=== PATIENT | female | born 1935 | race African-American/Black ===

== ENCOUNTER → 2016-09-03 | Outpatient (CLI) | payer MEDICARE ==
[2015-06-06 09:20] VITALS: BP 163/75
[~2016-09-03] MED LIST: AMLO10TA2 PO; ASPI-630 PO; ATOR40TA59 PO; CARV25TA2 PO; CHOL10002 PO; CLOP75TA57 PO; FENO160T PO; GLYB1TAB14 PO; HYDR12.58 PO; LOSA100T6 PO
--- NOTE | 2016-09-03 09:34 | CARD ---
APPROVED REPORT EXAM: Two-dimensional and M-mode echocardiogram with Doppler and color Doppler. Other Information Quality : Average Rhythm : NSR INDICATION Aortic Valve Disease Biosprosthetic aortic valve 2D DIMENSIONS RVDd3.1 (2.9-3.5cm)Left Atrium(2D)4.3 (1.6-4.0cm) IVSd1.1 (0.7-1.1cm)Aortic Root(2D)2.2 (2.0-3.7cm) LVDd4.0 (3.9-5.9cm)LVOT Diameter1.9 (1.8-2.4cm) PWd1.0 (0.7-1.1cm)LVDs2.9 (2.5-4.0cm) FS (%) 27.4 %SV37.7 ml LVEF(%)53.8 (>50%) Aortic Valve AoV Peak Richard.212.2cm/sAoV VTI51.4cm AO Peak GR.18.0mmHgLVOT Peak Richard.123.9cm/s LVOT VTI 30.05cmAO Mean GR.11mmHg Mitral Valve MV E Wajqhujq21.5cm/sMV DECEL IIFE603bn MV A Xvtsnumk360.5cm/sMV MAQ81si E/A Ratio0.9MV A Ztbhtkjj873zq MVA (PHT)2.91cm2 TDI E/Lateral E'15.7E/Medial E'13.9 Pulmonary Valve PV Peak Uhxrakzh484.5cm/sPV Peak Grad.5mmHg RVOT VTI17.5cm Tricuspid Valve TR P. Vffqxcec690cq/sRAP KFNMIEJE2hiUf TR Peak Gr.43zqGhAWCC39zpJq Pulmonary Vein S1 Wqrqmqwe08.4cm/sD2 Sqkvkpbl47.5cm/s LEFT VENTRICLE The left ventricle is normal size. There is borderline concentric left ventricular hypertrophy. Left ventricle systolic function is normal. The Ejection Fraction is 55-60%. There is normal LV segmental wall motion. The left ventricular diastolic function and filling is normal for age. There is no ventr icular septal defect visualized. RIGHT VENTRICLE The right ventricle is normal size. The right ventricular systolic function is normal. ATRIA The left atrium is borderline dilated. The right atrium size is normal. The interatrial septum is int act with no evidence for an atrial septal defect or patent foramen ovale as noted on 2-D or Doppler i maging. AORTIC VALVE Doppler and Color Flow revealed trace aortic regurgitation. Maximum pressure gradient of 18 mmHg and mean pressure gradient of 11 mmHg across the prosthetic aortic valve. There is a bioprosthetic aortic valve prosthesis. Prosthetic aortic valve with normal function. MITRAL VALVE The mitral valve leaflets are thickened. The mitral valve is normal in structure and function. There is no mitral valve stenosis. Doppler and Color Flow revealed mild mitral regurgitation. TRICUSPID VALVE The tricuspid valve is normal in structure and function. Doppler and Color Flow revealed mild tricusp id regurgitation. The PA pressure was estimated at 25 mmHg. There is no tricuspid valve stenosis. PULMONIC VALVE The pulmonic valve is not well visualized. Doppler and Color Flow revealed no pulmonic valvular regur gitation. There is no pulmonic valvular stenosis. GREAT VESSELS The aortic root is normal in size. Normal pulmonary venous flow (Doppler). The IVC is normal in size and collapses >50% with inspiration. PERICARDIAL EFFUSION There is no evidence of significant pericardial effusion. Critical Notification Critical Value: No <Conclusion> The left ventricle is normal size. Left ventricle systolic function is normal. The Ejection Fraction is 55-60%. There is borderline concentric left ventricular hypertrophy. Bioprosthetic aortic valve with normal function. Maximum pressure gradient of 18 mmHg and mean pressure gradient of 11 mmHg across the prosthetic aort ic valve. Doppler and Color Flow revealed trace aortic regurgitation. Doppler and Color Flow revealed mild mitral regurgitation. Doppler and Color Flow revealed mild tricuspid regurgitation. The PA pressure was estimated at 25 mmHg.
== END | disposition home or self-care (01) ==
LOC: ECHO 08:39
PROVIDERS: ATTEND Internal Medicine Cardiovascular Disease
DX: I08.3 Combined rheumatic disorders of mitral, aortic and tricuspid valves (principal)
CPT/HCPCS: 93306

== ENCOUNTER → 2017-02-11 | Outpatient (CLI) | payer MEDICARE ==
[2015-06-06 09:20] VITALS: BP 163/75
--- NOTE | 2017-02-11 15:36 | KCIC ---
CERVICAL SPINE 2-3V, THORACIC SPINE 3V Indication: Neck pain and stiffness radiating down the right arm. . Upper back pain for 2 weeks. Comparison: No comparison is available. FINDINGS: Cervical spine C1-C6 are visualized on lateral view, with obscured visualization of C7. Degenerative spondylosis noted, most advanced at C5-C6, with loss of disc height and spurring. No evidence of an acute fracture or subluxation. No definite prevertebral soft tissue swelling. There are surgical clips in the neck. Thoracic spine Mild right convexity thoracic scoliosis. Suboptimal visualization of the vertebral bodies on the AP or lateral view. There is degenerative spondylosis. No obvious paraspinal hematoma. Stent is identified at the anterior mediastinum. Surgical sutures are seen. IMPRESSION: 1. Degenerative changes of the cervical and thoracic spine. 2. No definite acute fracture or subluxation, but visualization of the thoracic spine is suboptimal. If there is clinical concern for an acute thoracic spine fracture, consider MRI. Electronically signed by: Bartolo Campbell MD (02/11/2017 3:32 PM) [facility]
== END | disposition home or self-care (01) ==
LOC: KCIC 14:06
PROVIDERS: ATTEND Family Medicine
DX: S22.009A Unspecified fracture of unspecified thoracic vertebra, initial encounter for closed fracture (principal); M47.894 Other spondylosis, thoracic region; M47.892 Other spondylosis, cervical region; X58.XXXA Exposure to other specified factors, initial encounter; Y93.89 Activity, other specified; Y92.89 Other specified places as the place of occurrence of the external cause; Y99.8 Other external cause status
CPT/HCPCS: 72040; 72072

== ENCOUNTER → 2017-03-11 | Outpatient (CLI) | payer MEDICARE | END | disposition home or self-care (01) | LOC: US 06:35 | DX: I65.23 Occlusion and stenosis of bilateral carotid arteries (principal); I70.203 Unspecified atherosclerosis of native arteries of extremities, bilateral legs | CPT/HCPCS: 93880; 93925 ==

== ENCOUNTER → 2017-03-27 | Outpatient (CLI) | payer MEDICARE ==
[~2017-03-27] MED LIST changes: -AMLO10TA2 PO; -ASPI-630 PO; -ATOR40TA59 PO; -CARV25TA2 PO; -CHOL10002 PO; -CLOP75TA57 PO; +CONTRAST GIVEN MC; -FENO160T PO; -GLYB1TAB14 PO; +HEPARIN for ARTERIAL LINE 0 ML; -HYDR12.58 PO; +IODIXANOL 320 MG/ML 100 ML VIAL.; -LOSA100T6 PO
[2017-03-27] MEDS: IOHEXOL 300 MG/ML 100ML VIAL. IV (08:30)
[2017-03-27] MEDS: REGADENOSON 0.4 MG/5 ML DISP.SYRIN. IV (08:45)
== END | disposition home or self-care (01) ==
LOC: NM 07:50
DX: I65.21 Occlusion and stenosis of right carotid artery (principal); I25.10 Atherosclerotic heart disease of native coronary artery without angina pectoris; I10 Essential (primary) hypertension; E11.9 Type 2 diabetes mellitus without complications
CPT/HCPCS: 70498; 78452; 93017; 96374; 96375; 96376; A9500; J2785; Q9967

== ENCOUNTER 2017-04-07 06:18 | Observation (INO) | payer MEDICARE ==
[2017-04-07] MEDS ORDERED: LIDOCAINE 2% 20 ML VIAL. ×2 (07:22)
[2017-04-07] MEDS ORDERED: IODIXANOL 320 MG/ML 100 ML VIAL. ×4 (07:22→09:19)
[2017-04-07 07:42] LABS: ANION GAP 7 (6-14); BLOOD UREA NITROGEN 26 mg/dL (7-20); CALCIUM 9.3 mg/dL (8.5-10.1); CARBON DIOXIDE 28 mmol/L (21-32); CHLORIDE 104 mmol/L (98-107); CREATININE 0.9 mg/dL (0.6-1.0); GFR 73.1; GLUCOSE 140 mg/dL (70-99); POTASSIUM 3.7 mmol/L (3.5-5.1); SODIUM 139 mmol/L (136-145)
[2017-04-07 07:45] LABS: HEMATOCRIT 34.9 % (36.0-47.0); HEMOGLOBIN 11.3 g/dL (12.0-15.5); MEAN CORPUSCULAR HEMOGLOBIN 28 pg (25-35); MEAN CORPUSCULAR HGB CONC 33 g/dL (31-37); MEAN CORPUSCULAR VOLUME 86 fL (79-100); PLATELET COUNT 256 x10^3/uL (140-400); RED BLOOD COUNT 4.07 x10^6/uL (3.50-5.40); RED CELL DISTRIBUTION WIDTH 15.5 % (11.5-14.5)
[2017-04-07] MEDS ORDERED: fentaNYL PF VIAL 100 MCG/2 ML VIAL ×4 (08:01→09:26)
[2017-04-07] MEDS ORDERED: MIDAZOLAM HCL/PF 2 MG/2 ML VIAL. ×4 (08:01→09:26)
[2017-04-07 08:11] LABS: INR 1.1 (0.8-1.1); PROTHROMBIN TIME PATIENT 13.8 SEC (11.7-14.0)
[2017-04-07] MEDS ORDERED: HEPARIN for IV BOLUS 10,000 UNIT/10 ML VIAL. ×2 (09:17)
[2017-04-07] MEDS ORDERED: NITROGLYCERIN 4 MG/20 ML SYRINGE for CATH LAB. ×4 (09:17→09:30)
[2017-04-07] MEDS ORDERED: dilTIAZem IV PUSH 25 MG/5 ML VIAL ×2 (09:17)
[2017-04-07] MEDS ORDERED: NITROGLYCERIN 200 MCG/2 ML SYRINGE FOR CATH/VASC LAB. ×4 (09:39→10:15)
[2017-04-07] MEDS ORDERED: VERAPAMIL 5 MG/2 ML VIAL. ×2 (10:15)
[2017-04-07] MEDS ORDERED: ASPIRIN 325 MG TABLET ×2 (10:43)
[2017-04-07] MEDS ORDERED: CLOPIDOGREL BISULFATE 75 MG TABLET ×2 (10:43)
[2017-04-07] MEDS: ASPIRIN 325 MG TABLET PO ×2 (10:53)
[2017-04-07] MEDS: CLOPIDOGREL BISULFATE 75 MG TABLET PO ×2 (10:54)
[2017-04-07] MEDS: MIDAZOLAM HCL/PF 2 MG/2 ML VIAL. IV ×2 (10:55)
[2017-04-07] MEDS: VERAPAMIL 5 MG/2 ML VIAL. IART ×2 (10:56)
[2017-04-07] MEDS: fentaNYL PF VIAL 100 MCG/2 ML VIAL IV ×2 (10:57)
[2017-04-07] MEDS: IODIXANOL 320 MG/ML 100 ML VIAL. IART ×2 (10:57)
[2017-04-07] MEDS: LIDOCAINE 2% 20 ML VIAL. IJ ×2 (10:58)
[2017-04-07] MEDS: NITROGLYCERIN 200 MCG/2 ML SYRINGE FOR CATH/VASC LAB. IART ×2 (10:59)
[2017-04-07] MEDS ORDERED: ACETAMINOPHEN 325 MG TABLET. PO ×2 (11:00)
[2017-04-07] MEDS: IV 1/2 NORMAL SALINE 1,000 ML IV ×4 (11:00→21:00)
[2017-04-07] MEDS: HEPARIN for IV BOLUS 10,000 UNIT/10 ML VIAL. IV ×2 (11:01)
[2017-04-07] MEDS: LABETALOL 20 MG/4 ML DISP.SYRIN. IVP ×4 (13:03→20:28)
[2017-04-07] MEDS: amLODIPine BESYLATE 10 MG TABLET PO ×2 (14:26)
[2017-04-07] MEDS: CARVEDILOL 12.5 MG TABLET. PO ×2 (17:57)
[2017-04-07] MEDS: FERROUS SULFATE 325 MG TABLET. PO ×2 (17:57)
[2017-04-07] MEDS ORDERED: CONTRAST GIVEN MC ×2 (18:00)
[2017-04-07] MEDS: glyBURIDE 5 MG TABLET PO ×2 (18:09)
[2017-04-07] MEDS: ATORVASTATIN CALCIUM 40 MG TABLET. PO ×2 (20:28)
[2017-04-07] MEDS ORDERED: METFORMIN HCL PO ×2 (21:00)
[2017-04-07] MEDS ORDERED: GLYBURIDE PO ×2 (21:00)
[2017-04-08] MEDS: LABETALOL 20 MG/4 ML DISP.SYRIN. IVP ×2 (04:11)
[2017-04-08 05:22] LABS: ANION GAP 8 (6-14); BLOOD UREA NITROGEN 20 mg/dL (7-20); CALCIUM 8.6 mg/dL (8.5-10.1); CARBON DIOXIDE 26 mmol/L (21-32); CHLORIDE 106 mmol/L (98-107); CREATININE 0.8 mg/dL (0.6-1.0); GFR 83.7; GLUCOSE 89 mg/dL (70-99); POTASSIUM 3.7 mmol/L (3.5-5.1); SODIUM 140 mmol/L (136-145)
[2017-04-08] MEDS: IV 1/2 NORMAL SALINE 1,000 ML IV ×2 (07:00)
[2017-04-08] MEDS: CLOPIDOGREL BISULFATE 75 MG TABLET PO ×2 (08:42)
[2017-04-08] MEDS: CARVEDILOL 12.5 MG TABLET. PO ×2 (08:43)
[2017-04-08] MEDS: CYANOCOBALAMIN (VITAMIN B-12) 1,000 MCG TABLET. PO ×2 (08:43)
[2017-04-08] MEDS: FOLIC ACID 1 MG TABLET. PO ×2 (08:43)
[2017-04-08] MEDS: LOSARTAN POTASSIUM 50 MG TABLET. PO ×2 (08:43)
[2017-04-08] MEDS: CHOLECALCIFEROL (VITAMIN D3) 1,000 UNIT TABLET PO ×2 (08:44)
[2017-04-08] MEDS: ASPIRIN CHEWABLE 81 MG TABLET. PO ×2 (08:44)
[2017-04-08] MEDS: amLODIPine BESYLATE 5 MG TABLET PO ×4 (08:46→11:08)
[2017-04-08] MEDS: hydroCHLOROthiazide 12.5 MG CAPSULE PO ×2 (08:46)
[2017-04-08] MEDS: FERROUS SULFATE 325 MG TABLET. PO ×2 (08:46)
[2017-04-08] MEDS: FENOFIBRATE,MICRONIZED 134 MG CAPSULE PO ×2 (08:54)
[2017-04-08] MEDS: glyBURIDE 5 MG TABLET PO ×2 (08:54)
[2017-04-09] MEDS ORDERED: metFORMIN 500 MG TABLET PO ×2 (08:00)
== END 2017-04-08 11:50 | disposition home or self-care (01) ==
LOC: CCL 06:18 → 2 NORTH 10:30
DX: I73.9 Peripheral vascular disease, unspecified (principal); I25.10 Atherosclerotic heart disease of native coronary artery without angina pectoris; R94.39 Abnormal result of other cardiovascular function study; Z95.1 Presence of aortocoronary bypass graft; I65.29 Occlusion and stenosis of unspecified carotid artery; Q25.3 Supravalvular aortic stenosis; I50.32 Chronic diastolic (congestive) heart failure; E78.5 Hyperlipidemia, unspecified; E11.9 Type 2 diabetes mellitus without complications; I11.0 Hypertensive heart disease with heart failure
CPT/HCPCS: 36415; 37227; 75630; 80048; 85027; 85610; 93459; 96365; 96375; 96376; 99152; 99153; C1724; C1725; C1769; C1771; C1877; C1892; G0269; G0378; G0379; J1644; J2250; J3010; J3490; J7030

== ENCOUNTER 2017-05-26 06:10 | Outpatient (CLI) | payer MEDICARE ==
[2017-05-26] MEDS ORDERED: LIDOCAINE 2% 20 ML VIAL. (07:11)
[2017-05-26] MEDS ORDERED: IODIXANOL 320 MG/ML 100 ML VIAL. (07:11)
[2017-05-26 07:12] LABS: HEMATOCRIT 35.9 % (36.0-47.0); HEMOGLOBIN 11.5 g/dL (12.0-15.5); MEAN CORPUSCULAR HEMOGLOBIN 28 pg (25-35); MEAN CORPUSCULAR HGB CONC 32 g/dL (31-37); MEAN CORPUSCULAR VOLUME 86 fL (79-100); PLATELET COUNT 245 x10^3/uL (140-400); RED BLOOD COUNT 4.16 x10^6/uL (3.50-5.40); WHITE BLOOD COUNT 4.8 x10^3/uL (4.0-11.0)
[2017-05-26 07:14] LABS: ANION GAP 10 (6-14); BLOOD UREA NITROGEN 27 mg/dL (7-20); CALCIUM 9.5 mg/dL (8.5-10.1); CARBON DIOXIDE 27 mmol/L (21-32); CHLORIDE 108 mmol/L (98-107); GFR 64.7; GLUCOSE 74 mg/dL (70-99); POTASSIUM 3.7 mmol/L (3.5-5.1); SODIUM 145 mmol/L (136-145)
[2017-05-26 07:32] LABS: INR 1.2 (0.8-1.1); PROTHROMBIN TIME PATIENT 14.4 SEC (11.7-14.0)
[2017-05-26] MEDS: LIDOCAINE 2% 20 ML VIAL. IJ (07:45)
[2017-05-26] MEDS: IODIXANOL 320 MG/ML 100 ML VIAL. IART (07:45)
[2017-05-26] MEDS ORDERED: MIDAZOLAM HCL/PF 2 MG/2 ML VIAL. (08:08)
[2017-05-26] MEDS ORDERED: fentaNYL PF VIAL 100 MCG/2 ML VIAL (08:08)
[2017-05-26] MEDS ORDERED: HEPARIN for IV BOLUS 10,000 UNIT/10 ML VIAL. ×2 (08:24→08:56)
[2017-05-26] MEDS: dilTIAZem INJ 10 MG, NITROGLYCERIN 4MG SYRINGE 4 MG, HEPARIN SODIUM 10,000 UNIT, VIPERS... INT CAT (09:15)
[2017-05-26] MEDS: fentaNYL PF VIAL 100 MCG/2 ML VIAL IV (09:47)
[2017-05-26] MEDS: MIDAZOLAM HCL/PF 2 MG/2 ML VIAL. IV (09:47)
[2017-05-26] MEDS: HEPARIN for IV BOLUS 10,000 UNIT/10 ML VIAL. IV (09:50)
[2017-05-26] MEDS: NITROGLYCERIN 200 MCG/2 ML SYRINGE FOR CATH/VASC LAB. IART (10:00)
[2017-05-26] MEDS ORDERED: IV 1/2 NORMAL SALINE 1,000 ML IV (10:05)
[2017-05-26] MEDS ORDERED: fentaNYL PF VIAL 100 MCG/2 ML VIAL IV (10:15)
[2017-05-26] MEDS ORDERED: NITROGLYCERIN SUBLINGUAL 0.4 MG BOTTLE OF 25. SL (10:15)
[2017-05-26] MEDS ORDERED: ACETAMINOPHEN 325 MG TABLET. PO (10:15)
[2017-05-26] MEDS: LABETALOL 20 MG/4 ML DISP.SYRIN. IVP (10:58)
== END 2017-05-26 14:11 | disposition home or self-care (01) ==
LOC: CCL 06:10
DX: I70.212 Atherosclerosis of native arteries of extremities with intermittent claudication, left leg (principal); I10 Essential (primary) hypertension; I25.10 Atherosclerotic heart disease of native coronary artery without angina pectoris; E11.9 Type 2 diabetes mellitus without complications; E78.5 Hyperlipidemia, unspecified; M19.90 Unspecified osteoarthritis, unspecified site; D64.9 Anemia, unspecified; Z98.49 Cataract extraction status, unspecified eye; Z98.890 Other specified postprocedural states; Z79.899 Other long term (current) drug therapy
CPT/HCPCS: 36415; 37225; 37228; 80048; 85027; 85610; 99152; 99153; C1724; C1769; C1885; C1892; J1644; J2250; J3010; J3490; J7030

== ENCOUNTER 2017-09-08 05:43 | Inpatient (IN) | payer MEDICARE ==
[2017-09-08] MEDS ORDERED: PROTAMINE 50 MG/5 ML VIAL. IV (05:53)
[2017-09-08] MEDS: IV RINGERS,LACTATED 1000ML 1,000 ML IV (06:43)
[2017-09-08] MEDS ORDERED: MIDAZOLAM HCL/PF 2 MG/2 ML VIAL. ×2 (06:58→06:59)
[2017-09-08 06:59] LABS: INR 1.2 (0.8-1.1); PARTIAL THROMBOPLASTIN TIME 33 SEC (24-38); PROTHROMBIN TIME PATIENT 14.6 SEC (11.7-14.0)
[2017-09-08] MEDS ORDERED: BUPIVACAINE MPF 0.25% 30 ML VIAL. (06:59)
[2017-09-08] MEDS ORDERED: ONDANSETRON PF 4 MG/2 ML VIAL. IV ×2 (07:00→09:30)
[2017-09-08] MEDS ORDERED: MORPHINE SULFATE 2 MG/ML DISP.SYRIN. IV ×2 (07:00→09:30)
[2017-09-08] MEDS ORDERED: PROCHLORPERAZINE 10 MG/2 ML VIAL. IV ×2 (07:00→09:30)
[2017-09-08] MEDS ORDERED: LIDOCAINE 1% PF 2 ML VIAL. ID (07:00)
[2017-09-08] MEDS ORDERED: fentaNYL PF VIAL 100 MCG/2 ML VIAL IV (07:00)
[2017-09-08 07:09] LABS: ADD MAN DIFF? NO
[2017-09-08 07:12] LABS: BASO % 0 % (0-3); EOS # 0.2 x10^3/uL (0.0-0.7); EOS % 3 % (0-3); HEMATOCRIT 35.1 % (36.0-47.0); HEMOGLOBIN 11.7 g/dL (12.0-15.5); LYMPH % 37 % (24-48); MEAN CORPUSCULAR HEMOGLOBIN 29 pg (25-35); MEAN CORPUSCULAR HGB CONC 33 g/dL (31-37); MEAN CORPUSCULAR VOLUME 86 fL (79-100); MONO # 0.6 x10^3/uL (0.0-1.1); MONO % 11 % (0-9); NEUT # 2.6 x10^3uL (1.8-7.7); NEUT % 48 % (31-73); PLATELET COUNT 240 x10^3/uL (140-400); RED BLOOD COUNT 4.08 x10^6/uL (3.50-5.40); RED CELL DISTRIBUTION WIDTH 16.2 % (11.5-14.5); WHITE BLOOD COUNT 5.4 x10^3/uL (4.0-11.0)
[2017-09-08 07:24] LABS: ANION GAP 7 (6-14); BLOOD UREA NITROGEN 39 mg/dL (7-20); CALCIUM 9.6 mg/dL (8.5-10.1); CARBON DIOXIDE 27 mmol/L (21-32); CHLORIDE 109 mmol/L (98-107); CREATININE 1.1 mg/dL (0.6-1.0); GLUCOSE 102 mg/dL (70-99); POTASSIUM 3.7 mmol/L (3.5-5.1); SODIUM 143 mmol/L (136-145)
[2017-09-08] MEDS ORDERED: hydrALAZINE 20 MG/ML VIAL. (07:31)
[2017-09-08] MEDS ORDERED: HEPARIN for IV BOLUS 10,000 UNIT/10 ML VIAL. (07:32)
[2017-09-08] MEDS: HEPARIN SODIUM 5,000 UNIT in IV RINGERS,LACTATED 500ML 500 ML IRR (08:09)
[2017-09-08] MEDS: LIDOCAINE 1% PF 30 ML VIAL. (08:10)
[2017-09-08] MEDS: SURGICEL FIBRILLAR 1X2 EACH. (08:59)
[2017-09-08] MEDS ORDERED: fentaNYL PF VIAL 100 MCG/2 ML VIAL (09:03)
[2017-09-08] MEDS ORDERED: 0.9 % SODIUM CHLORIDE 10 ML DISP.SYRIN. IV (09:30)
[2017-09-08] MEDS ORDERED: ACETAMINOPHEN 325 MG TABLET. PO (09:30)
[2017-09-08] MEDS ORDERED: HYDROcodone/APAP 5/325MG 1 TAB TABLET PO (09:30)
[2017-09-08] MEDS: fentaNYL PF VIAL 100 MCG/2 ML VIAL IV (09:41)
[2017-09-08 10:13] LABS: POC GLUCOSE 187 mg/dL (70-99)
[2017-09-08] MEDS: CHOLECALCIFEROL (VITAMIN D3) 1,000 UNIT TABLET PO (13:00)
[2017-09-08] MEDS: amLODIPine BESYLATE 5 MG TABLET PO (13:00)
[2017-09-08] MEDS: CLOPIDOGREL BISULFATE 75 MG TABLET PO (13:00)
[2017-09-08] MEDS: ASPIRIN ENTERIC COATED 325 MG TABLET.DR. PO (13:00)
[2017-09-08] MEDS: GLIMEPIRIDE 2 MG TABLET. PO (13:00)
[2017-09-08] MEDS: hydroCHLOROthiazide 12.5 MG CAPSULE PO (13:00)
[2017-09-08] MEDS: CYANOCOBALAMIN (VITAMIN B-12) 1,000 MCG TABLET. PO (13:00)
[2017-09-08] MEDS: FOLIC ACID 1 MG TABLET. PO (13:00)
[2017-09-08] MEDS: LOSARTAN POTASSIUM 50 MG TABLET. PO (13:00)
[2017-09-08] MEDS: HYDROcodone/APAP 5/325MG 1 TAB TABLET PO (13:06)
[2017-09-08] MEDS: IV NORMAL SALINE 1000ML BAG 1,000 ML IV ×2 (13:08→23:55)
[2017-09-08] MEDS: LABETALOL 20 MG/4 ML DISP.SYRIN. IVP (13:41)
[2017-09-08] MEDS: CARVEDILOL 12.5 MG TABLET. PO (17:52)
[2017-09-08] MEDS: ATORVASTATIN CALCIUM 40 MG TABLET. PO (21:41)
[2017-09-08] MEDS: FENOFIBRATE,MICRONIZED 134 MG CAPSULE PO (21:41)
[2017-09-09 05:30] LABS: ADD MAN DIFF? NO
[2017-09-09 05:38] LABS: BASO % 1 % (0-3); EOS # 0.1 x10^3/uL (0.0-0.7); EOS % 2 % (0-3); HEMATOCRIT 30.4 % (36.0-47.0); LYMPH # 1.8 x10^3/uL (1.0-4.8); LYMPH % 31 % (24-48); MEAN CORPUSCULAR HEMOGLOBIN 29 pg (25-35); MEAN CORPUSCULAR HGB CONC 33 g/dL (31-37); MEAN CORPUSCULAR VOLUME 87 fL (79-100); MONO # 0.5 x10^3/uL (0.0-1.1); MONO % 9 % (0-9); NEUT # 3.2 x10^3uL (1.8-7.7); NEUT % 57 % (31-73); PLATELET COUNT 202 x10^3/uL (140-400); RED BLOOD COUNT 3.51 x10^6/uL (3.50-5.40); RED CELL DISTRIBUTION WIDTH 16.2 % (11.5-14.5); WHITE BLOOD COUNT 5.7 x10^3/uL (4.0-11.0)
[2017-09-09 06:06] LABS: ANION GAP 6 (6-14); BLOOD UREA NITROGEN 23 mg/dL (7-20); CALCIUM 8.5 mg/dL (8.5-10.1); CARBON DIOXIDE 26 mmol/L (21-32); CHLORIDE 110 mmol/L (98-107); GFR 64.7; GLUCOSE 109 mg/dL (70-99); POTASSIUM 3.7 mmol/L (3.5-5.1); SODIUM 142 mmol/L (136-145)
[2017-09-09] MEDS ORDERED: ASPIRIN CHEWABLE 81 MG TABLET. PO (08:00)
[2017-09-09] MEDS: CYANOCOBALAMIN (VITAMIN B-12) 1,000 MCG TABLET. PO (08:02)
[2017-09-09] MEDS: CHOLECALCIFEROL (VITAMIN D3) 1,000 UNIT TABLET PO (08:02)
[2017-09-09] MEDS: GLIMEPIRIDE 2 MG TABLET. PO (08:02)
[2017-09-09] MEDS: HYDROcodone/APAP 5/325MG 1 TAB TABLET PO (08:02)
[2017-09-09] MEDS: FOLIC ACID 1 MG TABLET. PO (08:02)
[2017-09-09] MEDS: CLOPIDOGREL BISULFATE 75 MG TABLET PO (08:02)
[2017-09-09] MEDS: ASPIRIN ENTERIC COATED 325 MG TABLET.DR. PO (08:02)
[2017-09-09] MEDS: hydroCHLOROthiazide 12.5 MG CAPSULE PO (08:02)
[2017-09-09] MEDS: LOSARTAN POTASSIUM 50 MG TABLET. PO (08:03)
[2017-09-09] MEDS: amLODIPine BESYLATE 5 MG TABLET PO ×2 (08:03→11:18)
[2017-09-09] MEDS: IV NORMAL SALINE 1000ML BAG 1,000 ML IV (11:00)
[2017-09-09] MEDS: CARVEDILOL 12.5 MG TABLET. PO (11:17)
== END 2017-09-09 14:48 | disposition home or self-care (01) | DRG 39 ==
LOC: OPSVCIP 05:43 → 2 NORTH 10:15
PROC: 03CL0ZZ Extirpation of Matter from Left Internal Carotid Artery, Open Approach (ICD-10-PCS; principal; 2017-09-08 07:22)
DX: I65.22 Occlusion and stenosis of left carotid artery (principal); I25.10 Atherosclerotic heart disease of native coronary artery without angina pectoris; E11.51 Type 2 diabetes mellitus with diabetic peripheral angiopathy without gangrene; E66.9 Obesity, unspecified; I10 Essential (primary) hypertension; E78.5 Hyperlipidemia, unspecified; Z95.2 Presence of prosthetic heart valve; Z82.49 Family history of ischemic heart disease and other diseases of the circulatory system; Z82.61 Family history of arthritis; Z88.8 Allergy status to other drugs, medicaments and biological substances; Z95.1 Presence of aortocoronary bypass graft
CPT/HCPCS: 36415; 80048; 82962; 85025; 85610; 85730; 93005; J0360; J0690; J1644; J2250; J3010; J3490; J7030; J7040; J7120

== ENCOUNTER → 2018-01-11 | Outpatient (CLI) | payer MEDICARE ==
[2017-09-09 11:18] VITALS: BP 190/65
[~2018-01-11] MED LIST changes: +AMLO10TA6 PO; +ASPI-630 PO; +ASPI325T11 PO; +ATOR40TA59 PO; +CARV25TA PO; +CARV25TA2 PO; +CHOL10002 PO; +CLOP75TA57 PO; -CONTRAST GIVEN MC; +CYAN10005 PO; +FENO160T PO; +FERR325T14 PO; +FOLI1TAB16 PO; +GLIM2TAB2 PO; +GLYB-100 PO; +GLYB1TAB2 PO; -HEPARIN for ARTERIAL LINE 0 ML; +HYDR12.58 PO; -IODIXANOL 320 MG/ML 100 ML VIAL.; +LOSA100T7 PO
--- NOTE | 2018-01-11 13:24 | RAD ---
MR#: [id number] Date of Study: 01/11/2018 Ordering Physician: RADHA DHALIWAL, Referring Physician: RADHA DHALIWAL, Tech: STARR Antunez, RDMS, RTR APPROVED REPORT Patient Location: OUT-PATIENT Indications Rest Pain: Edema PAD Risk Factors History of Lower Extremity PAD: Bilaterally Hypertension Diabetes Surgery/Intervention Stent : VELOCITY AND DOPPLER WAVEFORM ANALYSIS RIGHT cm/secWaveformSeverity LEFT cm/secWaveform Severity pCFA 81.5MonophasicpCFA 145.1Biphasic Prof Fem Art. 63.1Prof Fem Art. 214.8 Fem Art Prox. 64.7MonophasicFem Art Prox. 136.0Biphasic Fem Art Mid. 45.9MonophasicFem Art Mid. 157.8Biphasic Fem Art Dist. 59.9MonophasicFem Art Dist. 140.9Biphasic Pop Art(Fossa) 42.1MonophasicPop Art([place]) 156.7Biphasic DEPLOYMENT TECHNICIAN Dist. 32.7MonophasicPTA Dist. 100.8Biphasic Per Art Dist.51.8MonophasicPer Art Dist.70.1Biphasic PB Dist. 16.6MonophasicATA Dist. 84.2Biphasic DPA 8MonophasicDPA 15Biphasic Findings Grayscale images of the right lower extremity arterial vessels reveals diffuse atherosclerotic plaque of moderate degree. Spectral waveforms are monophasic suggestive either of a more proximal stenosis and/or loss of arterial elasticity due to diffuse calcific disease. There is severe diffuse disease i nvolving the anterior tibial artery with severely diminished velocities. The peroneal and posterior t ibial arteries appear to be patent but again demonstrate diminished monophasic waveforms. The left lower extremity arterial vessels also demonstrate mild to moderate diffuse atherosclerotic d isease. Velocities on the left are within normal limits without any focal high-grade stenosis and thr ee-vessel runoff below the knee. The dorsalis pedis artery on the left side appears to be severely di ffusely diseased at greater than 50% stenosis. Critical Notification Critical Value: No <Conclusion> 1. Cannot rule out inflow disease on the right side but notable for diffuse monophasic waveforms and moderate diffuse atherosclerotic disease. 2. No significant left lower extremity arterial disease Signed by : Florentin Zimmer, Electronically Approved : 01/11/2018 13:24:11
== END | disposition home or self-care (01) ==
LOC: US 08:11
PROVIDERS: ATTEND Internal Medicine Cardiovascular Disease
DX: I70.293 Other atherosclerosis of native arteries of extremities, bilateral legs (principal); I10 Essential (primary) hypertension; E11.9 Type 2 diabetes mellitus without complications
CPT/HCPCS: 93925

== ENCOUNTER → 2018-08-04 | Outpatient (CLI) | payer MEDICARE ==
[2017-09-09 11:18] VITALS: BP 190/65
[~2018-08-04] MED LIST changes: -AMLO10TA6 PO; +AMLO10TA8 PO; +LOSA100T14 PO; -LOSA100T7 PO
--- NOTE | 2018-08-04 09:17 | RAD ---
MR#: [id number] Date of Study: 08/04/2018 Ordering Physician: RADHA DHALIWAL, Referring Physician: RADHA DHALIWAL, Tech: Isaias Cruz MBA, RDMS, RVT, RDCS, RTR APPROVED REPORT Patient Location: OUT-PATIENT Indications Uncontrolled HTN Renal Artery Doppler Right Renal Artery Left Renal Arter y Proximal 131.0/23.0 cm/secProximal 152.0/20.0 cm/sec Mid 141.0/25.0 cm/secMid 137.0/19.0 cm/sec Distal 152.0/20.0 cm/secDistal 137.0/19.0 cm/sec Renal/Aorta Ratio 1.50Renal/Aorta Ratio 1.50 Prox. Resistive Index 0.83Prox. Resistive Index 0.87 Mid Resistive Index 0.83Mid Resistive Index 0.86 Distal Resistive Index 0.87Distal Resistive Index 0.86 Rt. Segmental A. 68.0/13.0 cm/secLt. Segmental A. 67.0/10.0 cm/sec Renal Measurements RightLeft Kidney Etuurj0438.6 cm cmKidney Bzixue60.6 cm cm Right Additional FindingsLeft Additional Findings Aortic Doppler VelocityWaveform Proximal Aorta 100.0 cm/sec Findings Hugo scale images of the abdominal aorta are limited due to body habitus. The abdominal aorta appears to be mildly calcified. Aortic velocities are within normal limits. Renal to aortic ratios are within normal limits. The proximal mid and distal renal artery velocities are within normal limits without any significant obstruction noted. Normal resistive indices are noted. Grayscale images of the kidneys demonstrate mild cortical hypertrophy. Critical Notification Critical Value: No <Conclusion> No significant renal artery stenosis bilaterally. Signed by : Florentin Zimmer, Electronically Approved : 08/04/2018 09:17:14
--- NOTE | 2018-08-04 09:58 | CARD ---
MR#: [id number] Date of Study: 08/04/2018 Ordering Physician: RADHA DHALIWAL, Referring Physician: RADHA DHALIWAL Tech: Mary Anne Dunaway RDCS APPROVED REPORT EXAM: Two-dimensional and M-mode echocardiogram with Doppler and color Doppler. Other Information Quality : AverageHR: 60bpm Rhythm : NSR INDICATION AVR 2D DIMENSIONS RVDd3.1 (2.9-3.5cm)Left Atrium(2D)4.1 (1.6-4.0cm) IVSd1.4 (0.7-1.1cm)Aortic Root(2D)2.5 (2.0-3.7cm) LVDd3.1 (3.9-5.9cm)LVOT Diameter1.8 (1.8-2.4cm) PWd0.9 (0.7-1.1cm)LVDs1.7 (2.5-4.0cm) FS (%) 45.1 %SV29.9 ml LVEF(%)77.8 (>50%) M-Mode DIMENSIONS Left Atrium(MM)3.97 (2.5-4.0cm)Aortic Root2.73 (2.2-3.7cm) Aortic Valve AoV Peak Richard.215.4cm/sAoV VTI44.2cm AO Peak GR.18.6mmHgLVOT Peak Richard.121.3cm/s AO Mean GR.8mmHgAVA (VMAX)1.38cm2 VERONIKA (VTI)1.80cm2 Mitral Valve MV E Zjrjegpa20.8cm/sMV DECEL SJHP028hf MV A Bmeyecnd843.5cm/sE/A Ratio0.7 MV A Gaautgjj228zj Pulmonary Valve PV Peak Iqulaohi48.9cm/s Tricuspid Valve TR P. Uwknuylc368cl/sRAP NYUTQLQI7wfPm TR Peak Gr.93jhRiWGQM89leIb LEFT VENTRICLE The left ventricle cavity is small. There is moderate to severe concentric left ventricular hypertrop hy. The left ventricle is hyperdynamic. The Ejection Fraction is >70%. There is normal LV segmental w all motion. Transmitral Doppler flow pattern is Grade I-abnormal relaxation pattern. RIGHT VENTRICLE The right ventricle is normal size. There is normal right ventricular wall thickness. The right ventr icular systolic function is normal. ATRIA The left atrium is mildly dilated. The right atrium size is normal. The interatrial septum is intact with no evidence for an atrial septal defect or patent foramen ovale as noted on 2-D or Doppler imagi ng. AORTIC VALVE Prior AVR with likely balloon expandable TAVR - Probable [place] Doppler and Color Flow reveal ed no significant aortic regurgitation. There is no significant aortic valvular stenosis with a maxim um pressure gradient of 19 mmHg and mean pressure gradient of 8.5 mmHg. MITRAL VALVE The mitral valve leaflets are thickened and calcified. There is no evidence of mitral valve prolapse. There is no mitral valve stenosis. Doppler and Color-flow revealed trace mitral regurgitation. TRICUSPID VALVE The tricuspid valve is normal in structure and function. Doppler and Color Flow revealed trace tricus pid regurgitation. The PA pressure was estimated at 25 mmHg. There is no tricuspid valve prolapse or vegetation. There is no tricuspid valve stenosis. PULMONIC VALVE The pulmonary valve is normal in structure and function. Doppler and Color Flow revealed no pulmonic valvular regurgitation. There is no pulmonic valvular stenosis. GREAT VESSELS The aortic root is normal in size. The ascending aorta is normal in size. The IVC is normal in size a nd collapses >50% with inspiration. PERICARDIAL EFFUSION There is no evidence of significant pericardial effusion. Critical Notification Critical Value: No <Conclusion> The left ventricle is hyperdynamic. The Ejection Fraction is >70%. There is normal LV segmental wall motion. There is moderate to severe concentric left ventricular hypertrophy. Prior AVR with likely balloon expandable TAVR - Probable [place] Aliza. No significant aortic stenos is Signed by : Florentin Zimmer, Electronically Approved : 08/04/2018 09:57:11
== END | disposition home or self-care (01) ==
LOC: ECHO 07:35
PROVIDERS: ATTEND Internal Medicine Cardiovascular Disease
DX: I34.8 Other nonrheumatic mitral valve disorders (principal); I11.9 Hypertensive heart disease without heart failure; N28.81 Hypertrophy of kidney
CPT/HCPCS: 93306; 93975

== ENCOUNTER → 2019-07-25 | Outpatient (CLI) | payer MEDICARE ==
[2017-09-09 11:18] VITALS: BP 190/65
[~2019-07-25] MED LIST changes: +CYAN-25 PO; -CYAN10005 PO; -GLIM2TAB2 PO; +GLIM2TAB7 PO; -GLYB-100 PO; +GLYB1TAB18 PO; +REGADENOSON 0.4 MG/5 ML DISP.SYRIN. IV ONE
--- NOTE | 2019-07-25 09:12 | RAD ---
MR#: [id number] Date of Study: 07/25/2019 Ordering Physician: RADHA DHALIWAL, Referring Physician: RADHA DHALIWAL, Tech: Isaias Cruz MBA, RDMS, RVT, RDCS, RTR APPROVED REPORT Patient Location: OUT-PATIENT Indications PAD VELOCITY AND DOPPLER WAVEFORM ANALYSIS RIGHT cm/secWaveformSeverity LEFT cm/secWaveform Severity dCFA 49.0MonophasicdCFA 105.0Biphasic Prof Fem Art. 84.0MonophasicProf Fem Art. 122.0Biphasic Fem Art Prox. 219.0MonophasicFem Art Prox. 163.0Biphasic Fem Art Mid. 87.0MonophasicFem Art Mid. 378.0Biphasic Fem Art Dist. 242.0MonophasicFem Art Dist. 164.0Biphasic Pop Art(Fossa) 44.0MonophasicPop Art([place]) 135.0Biphasic FLOORWORKER Prox. 33.0MonophasicPTA Prox. 119.0Biphasic FLOORWORKER Dist. 28.0MonophasicPTA Dist. 85.0Biphasic Per Art Mid. Per Art Mid. 38.0Biphasic PB Prox. 64.0MonophasicATA Prox. 56.0Biphasic DPA 13MonophasicDPA 59Biphasic Findings Grayscale images of the bilateral lower extremity arterial vessels revealed diffuse calcification. On the right side there are monophasic waveforms throughout lower extremity suggestive of more proxim al inflow disease. At the level of the proximal and distal SFA there is likely a greater than 50% st enosis. Below-knee vessels have diminished velocities again consistent with more proximal SFA and il iac disease. There is two-vessel runoff in the form of an anterior tibial artery and a posterior tib ial artery. Both of these demonstrate monophasic waveforms. On the left side waveforms are mostly biphasic. There is likely a greater than 50% stenosis involvin g the mid SFA. There is three-vessel runoff below the knee. Critical Notification Critical Value: No <Conclusion> 1. Probable moderate to severe (50-75%) right iliac and SFA disease 2. Probable moderate (50%) left SFA disease Signed by : Florentin Zimmer, Electronically Approved : 07/25/2019 09:11:40
--- NOTE | 2019-07-25 12:08 | RAD ---
MR#: [id number] Date of Study: 07/25/2019 Ordering Physician: RADHA DHALIWAL Referring Physician: MAKAYLA JOSÉ Tech: RT Terri Dorado) (N) APPROVED REPORT Test Type: Pharmacological Stress Nurse/Tech: RT Ave (Jose) (N) Test Indications: coronary artery disease Cardiac History: CABG 15 years ago 4 bypass, valve replacement 4 years ago Medications: see EHR Medical History: hypertension, diabetic Resting ECG: sinus rhythm Resting Heart Rate: 65 bpm Resting Blood Pressure: 180/65mmHg Pretest Chest Pain: None Nurse/Tech Notes Consent: The procedure was explained to the patient in lay terms. Informed consent was witnessed. Ben eout was entered into [facility]. History and Stress Test performed by RT Terri Dorado) (N) Pharm. Details Pharmacologic stress testing was performed using 0.4mg per 5ml of regadenoson given intravenously ove r 7-10 seconds. POST EXERCISE Reason for Termination: Infusion complete Max HR: 80 bpm Max Blood Pressure: 150/53mmHg INTERPRETATION Stress EKG Conclusion: The resting EKG shows a sinus rhythm with nonspecific ST-T wave changes. The stress EKG shows no significant change from baseline. No EKG evidence of stress-induced ischemia. Imaging Protocol IMAGE PROTOCOL: Rest Tc-99m/stress Tc-99m 1 day Rest: Stress: Viability: Radiopharm.Tc99m DeudgkpztSo19j Sestamibi Dose10.6mCi 32.1mCi Duration 15min. 10min. Img Date 07/25/2019 07/25/2019 Inj-Img Vehl43mkh. 60min. Rest Admin Site:IV - Right AntecubitalAdministrator:RT Terri Dorado)(N) Stress Admin Site: IV - Right AntecubitalAdministrator: RT Terri Dorado)(N) STRESS DATA End Diast. Vol.64.0mlAv. Heart Rate69.0bpm End Syst. Vol.9.0mlCO Index BSA0.0L/min Myocardial Vmfp758.0gEject. Qhqqdjwz69.0% Stress Rates Pk. Fill Rate3.63EDV/secLVtime Pk. Fill 247.03msec Pk. Empty Rate4.16ESV/secLVtime Pk. Byllv588.56msec 1/3 Pk. Fill0.94EDV/sec Stress Scores Regional WT1.00Summed WT4.00 Regional WM0.00Summed WM0.00 LV Perfusion The stress images show a mild apical defect. The rest images showed no significant defects. Nuclear imaging shows an area of reversible ischemia at the apex. Wall Motion Left ventricular systolic function shows a mild apical defect and is otherwise normal. Ejection frac tion was greater than 70%. LV Perf. Quant 17 Seg. SSS8.00 17 Seg. SRS0.00 17 Seg. SDS8.00 Stress Defect Extent (% LAD)5.00Rest Defect Extent (% LAD)0.00Rev. Defect Extent (% LAD)5.00 Stress Defect Extent (% LCX) 48.80Rest Defect Extent (% LCX)0.00Rev. Defect Extent (% LCX)48.80 Stress Defect Extent (% RCA)0.00Rest Defect Extent (% RCA)0.00Rev. Defect Extent (% RCA)0.00 Stress Defect Extent (% MEÑO)17.40Rest Defect Extent (% MEÑO)0.00Rev. Defect Extent (% MEÑO)17.40 Conclusion 1. No EKG evidence of stress-induced ischemia. 2. Nuclear imaging shows a mild area of reversible ischemia at the apex. 3. LV function shows mild apical hypokinesis but an overall ejection fraction of greater than 70%. 4. Moderate risk Lexiscan nuclear stress test. Signed by : Bao Castro MD Electronically Approved : 07/25/2019 12:07:37
== END | disposition home or self-care (01) ==
LOC: NM 07:35
PROVIDERS: ATTEND Internal Medicine Cardiovascular Disease
DX: I25.9 Chronic ischemic heart disease, unspecified (principal); I73.9 Peripheral vascular disease, unspecified
CPT/HCPCS: 78452; 93017; 93925; A9500; J2785

== ENCOUNTER → 2020-02-24 | Outpatient (CLI) | payer MEDICARE ==
[2017-09-09 11:18] VITALS: BP 190/65
[~2020-02-24] MED LIST changes: +AMLO-187 PO; -AMLO10TA8 PO; -REGADENOSON 0.4 MG/5 ML DISP.SYRIN. IV ONE
--- NOTE | 2020-02-24 14:47 | CARD ---
MR#: [id number] Date of Study: 02/24/2020 Ordering Physician: RADHA DHALIWAL, Referring Physician: RADHA DHALIWAL Tech: Rena Jacobo RDCS APPROVED REPORT EXAM: Two-dimensional and M-mode echocardiogram with Doppler and color Doppler. Other Information Quality : Good INDICATION Cardiac Disease: CAD Hx: TAVR 2013 Surgery/Intervention CABG: Date: 2004 2D DIMENSIONS RVDd2.8 (2.9-3.5cm)Left Atrium(2D)4.4 (1.6-4.0cm) IVSd1.0 (0.7-1.1cm)Aortic Root(2D)2.6 (2.0-3.7cm) LVDd4.6 (3.9-5.9cm)LVOT Diameter2.0 (1.8-2.4cm) PWd0.8 (0.7-1.1cm)LVDs2.5 (2.5-4.0cm) FS (%) 30.0 %SV76.3 ml LVEF(%)60.0 (>50%) Aortic Valve AoV Peak Richard.174.8cm/sAoV VTI39.0cm AO Peak GR.12.2mmHgLVOT Peak Richard.117.9cm/s LVOT VTI 28.92cmAO Mean GR.7mmHg VERONIKA (VMAX)2.86bz6HYP (VTI)2.27cm2 Mitral Valve MV E Uxvqemue67.9cm/sMV DECEL LVSU381qv MV A Ghelhakj532.7cm/sMV NFW60wo E/A Ratio0.8MVA (PHT)2.85cm2 TDI E/Lateral E'18.9E/Medial E'19.9 Tricuspid Valve TR P. Aqoqevox773uf/sRAP WCRESSOU9wfKq TR Peak Gr.14mnEfAHWZ72krXv Pulmonary Vein S1 Wyufnuiw60.2cm/sD2 Gkcurldk77.3cm/s LEFT VENTRICLE The left ventricle is normal size. There is mild concentric left ventricular hypertrophy. The left ve ntricular systolic function is normal and the ejection fraction is within normal range. The Ejection Fraction is 55-60%. There is normal LV segmental wall motion. Transmitral Doppler flow pattern is Gra de I-abnormal relaxation pattern. RIGHT VENTRICLE The right ventricle is normal size. The right ventricular systolic function is normal. ATRIA The left atrium is mildly dilated. The right atrium size is normal. The interatrial septum is intact with no evidence for an atrial septal defect or patent foramen ovale as noted on 2-D or Doppler imagi ng. AORTIC VALVE Patient has a history of a TAVR procedure. Doppler and Color Flow revealed trace aortic regurgitation . There is no significant aortic valvular stenosis. MITRAL VALVE The mitral valve is calcified but opens well. Mitral annular calcification is mild. There is no evide nce of mitral valve prolapse. There is no mitral valve stenosis. Doppler and Color-flow revealed trac e mitral regurgitation. TRICUSPID VALVE The tricuspid valve is normal in structure and function. Doppler and Color Flow revealed trace tricus pid regurgitation. The PA pressure was estimated at 25 mmHg. There is no tricuspid valve stenosis. PULMONIC VALVE The pulmonic valve is not well visualized. Doppler and Color Flow revealed no pulmonic valvular regur gitation. There is no pulmonic valvular stenosis. GREAT VESSELS The aortic root is normal in size. The ascending aorta is normal in size. The IVC is normal in size a nd collapses >50% with inspiration. PERICARDIAL EFFUSION There is no evidence of significant pericardial effusion. Critical Notification Critical Value: No <Conclusion> The left ventricle is normal size. The left ventricular systolic function is normal and the ejection fraction is within normal range. The Ejection Fraction is 55-60%. There is mild concentric left ventricular hypertrophy. Patient has a history of a TAVR procedure. Doppler and Color Flow revealed trace aortic regurgitation. There is no significant aortic valvular stenosis. Doppler and Color-flow revealed trace mitral regurgitation. Doppler and Color Flow revealed trace tricuspid regurgitation. The PA pressure was estimated at 25 mmHg. Signed by : Bao Castro MD Electronically Approved : 02/24/2020 14:47:25
== END ==
LOC: ECHO 07:27
PROVIDERS: ATTEND Internal Medicine Cardiovascular Disease
DX: I34.0 Nonrheumatic mitral (valve) insufficiency (principal); I25.10 Atherosclerotic heart disease of native coronary artery without angina pectoris; I51.7 Cardiomegaly
CPT/HCPCS: 93306

== ENCOUNTER → 2020-09-13 | Outpatient (CLI) | payer MEDICARE ==
[2017-09-09 11:18] VITALS: BP 190/65
--- NOTE | 2020-09-13 21:35 | RAD ---
MR#: [id number] Date of Study: 09/13/2020 Ordering Physician: RADHA DHALIWAL, Referring Physician: RADHA DHALIWAL, Tech: Josefa Weems RVT, LESLIE APPROVED REPORT Patient Location: OUT-PATIENT Laterality:Bilateral Indications carotid stenosis Risk Factors Hypertension: Diabetes Surgery/Intervention Endarterectomy: right left Doppler Spectral Velocity Analysis Right Left pCCA 83/13 cm/spCCA 121/15 cm/s mCCA 82/7 cm/smCCA 152/15 cm/s dCCA 66/13 cm/sdCCA 170/18 cm/s ECA 158/ cm/sECA 105/ cm/s pICA 103/15 cm/spICA 94/18 cm/s Omar 114/22 cm/smICA 103/23 cm/s dICA 83/18 cm/sdICA 83/19 cm/s Vert. Vert. 133/ cm/s ICA/CCA 1.37ICA/CCA 0.85 Findings Grayscale images of the bilateral carotid vasculature demonstrates moderate to severe diffuse atheros clerosis. In particular the bilateral common carotid arteries have moderate obstructive plaque. Based on veloc ity criteria there is likely a greater than 50% stenosis in the mid and distal left common carotid ar pamela. The bilateral internal carotid arteries overall demonstrate 0 to less than 50% stenosis based on [facility] criteria. The right external carotid artery has elevated velocities suggestive of greater than 50% stenosis. The bilateral vertebral velocities are antegrade but elevated again suggestive of moderate obstructiv e disease. Bilateral ICA to CCA ratios are within normal limits. Critical Notification Critical Value: No <Conclusion> 1. Moderate bilateral common carotid arterial disease based on velocity criteria 2. No significant bilateral internal carotid arterial disease 3. Moderate bilateral vertebral arterial disease 4. Consider CT angiogram of the neck for further evaluation of carotid obstructive disease given dif fuse heavy calcification. Signed by : Florentin Zimmer, Electronically Approved : 09/13/2020 21:34:42
--- NOTE | 2020-09-13 21:38 | RAD ---
MR#: [id number] Date of Study: 09/13/2020 Ordering Physician: RADHA DHALIWAL, Referring Physician: RADHA DHALIWAL, Tech: Josefa Weems RVT, LESLIE APPROVED REPORT Patient Location: OUT-PATIENT Risk Factors Hypertension Diabetes VELOCITY AND DOPPLER WAVEFORM ANALYSIS RIGHT cm/secWaveformSeverity LEFT cm/secWaveform Severity dCFA 69.0MonophasicdCFA 247.0Biphasic Prof Fem Art. 45.0MonophasicProf Fem Art. 237.0Biphasic Fem Art Prox. 54.0MonophasicFem Art Prox. 211.0Biphasic Fem Art Mid. 67.0MonophasicFem Art Mid. 256.0Biphasic Fem Art Dist. 196.0MonophasicFem Art Dist. 132.0Biphasic Pop Art(Fossa) 26.0MonophasicPop Art([place]) 164.0Biphasic DOT COMPLIANCE MANAGER Prox. 44.0MonophasicPTA Prox. 131.0Monophasic DOT COMPLIANCE MANAGER Dist. 41.0MonophasicPTA Dist. 130.0Monophasic Per Art Dist.34.0MonophasicPer Art Dist.63.0Monophasic PB Prox. 60.0MonophasicATA Prox. 103.0Biphasic DPA 38MonophasicDPA 23Monophasic Findings Grayscale images of the lower extremity arterial vessels demonstrates severe diffuse atherosclerosis. In the right lower extremity waveforms are monophasic from the common femoral artery to the distal ve ssels suggestive of more proximal iliac disease. On the right side there is likely a greater than 50% stenosis involving the distal SFA and popliteal junction. There is three-vessel runoff below the knee although the waveforms are diminished consiste nt with more proximal stenosis. On the left side there is likely a moderate diffuse 50% stenosis involving the common femoral artery and superficial femoral arteries. There is three-vessel runoff below the knee without any focal high -grade stenosis noted. Critical Notification Critical Value: No <Conclusion> 1. Probable inflow disease involving the right iliac vasculature of greater than 50% 2. Greater than 50% stenosis involving the right SFA popliteal junction with monophasic waveforms th roughout 3. Moderate diffuse 50% stenosis involving the left common femoral artery and superficial femoral ar teries. Signed by : Florentin Zimmer, Electronically Approved : 09/13/2020 21:37:38
== END ==
LOC: US 09:41
PROVIDERS: ATTEND Internal Medicine Cardiovascular Disease
DX: I70.203 Unspecified atherosclerosis of native arteries of extremities, bilateral legs (principal); I65.23 Occlusion and stenosis of bilateral carotid arteries
CPT/HCPCS: 93880; 93925

== ENCOUNTER 2020-10-29 06:55 | Outpatient (CLI) | payer MEDICARE ==
[~2020-10-29] VITALS: Ht 152.4 cm; Wt 70.0 kg
[2020-10-29] MEDS ORDERED: IODIXANOL 320 MG/ML 100 ML VIAL. ONE (07:35)
[2020-10-29] MEDS ORDERED: LIDOCAINE 1% Multi-Dose 20 ML VIAL. ONE (07:35)
[2020-10-29] MEDS ORDERED: METF500T16 PO (07:38)
[2020-10-29] MEDS ORDERED: FURO40TA4 PO (07:38)
[2020-10-29] MEDS ORDERED: POTA10TA12 PO (07:38)
[2020-10-29 07:44] LABS: HEMATOCRIT 31.1 % (36.0-47.0); HEMOGLOBIN 10.1 g/dL (12.0-15.5); RED BLOOD COUNT 3.53 x10^6/uL (3.50-5.40); RED CELL DISTRIBUTION WIDTH 16.1 % (11.5-14.5); WHITE BLOOD COUNT 5.4 x10^3/uL (4.0-11.0)
[2020-10-29 07:46] LABS: PROTHROMBIN TIME PATIENT 14.5 SEC (11.7-14.0)
[2020-10-29 07:51] LABS: CALCIUM 9.1 mg/dL (8.5-10.1); CREATININE 1.6 mg/dL (0.6-1.0); GFR 37.3; POTASSIUM 4.4 mmol/L (3.5-5.1)
[2020-10-29 07:53] VITALS: BP 168/82
[2020-10-29] MEDS ORDERED: HEPARIN for IV BOLUS 10,000 UNIT/10 ML VIAL. ONE (08:08)
[2020-10-29] MEDS ORDERED: fentaNYL PF VIAL 100 MCG/2 ML VIAL ONE ×2 (08:08→09:49)
[2020-10-29] MEDS ORDERED: MIDAZOLAM HCL/PF 2 MG/2 ML VIAL. ONE ×2 (08:08→09:48)
[2020-10-29] MEDS ORDERED: LIDOCAINE 1% PF 2 ML VIAL. ONE (09:12)
[2020-10-29] MEDS ORDERED: NITROGLYCERIN 200 MCG/2 ML SYRINGE FOR CATH/VASC LAB. ONE ×2 (09:13→10:12)
[2020-10-29] MEDS ORDERED: VERAPAMIL 5 MG/2 ML VIAL. ONE (09:13)
[2020-10-29] MEDS ORDERED: CONTRAST GIVEN. MC PRN (09:15)
[2020-10-29] MEDS ORDERED: fentaNYL PF VIAL 100 MCG/2 ML VIAL IV ONE (09:15)
[2020-10-29] MEDS ORDERED: LIDOCAINE 1% Multi-Dose 20 ML VIAL. INJ ONE (09:15)
[2020-10-29] MEDS ORDERED: MIDAZOLAM HCL/PF 2 MG/2 ML VIAL. IV ONE (09:15)
[2020-10-29] MEDS ORDERED: IODIXANOL 320 MG/ML 100 ML VIAL. IART ONE (09:15)
[2020-10-29] MEDS ORDERED: NITROGLYCERIN 200 MCG/2 ML SYRINGE FOR CATH/VASC LAB. IART ONE (09:30)
[2020-10-29] MEDS ORDERED: HEPARIN for IV BOLUS 10,000 UNIT/10 ML VIAL. IART ONE (09:30)
[2020-10-29] MEDS ORDERED: VERAPAMIL 5 MG/2 ML VIAL. IART ONE (09:30)
[2020-10-29 10:12] VITALS: BP 155/75
--- NOTE | 2020-10-29 10:35 | PDOC ---
MODERATE SEDATION ASSESSMENT RISKS/ALTERNATIVES Risks/Alternatives Risks and alternatives of this type of sedation and procedure discussed with: RISK/ALTERNATIVES: Patient H & P ON CHART H & P H & P on chart and reviewed for co-morbid conditions and appropriate labs. H&P ON CHART: Yes STATUS PREG STATUS ASSESSED: N/A MEDS/ALLERGIES REVIEWED Meds/Allergies Reviewed Medications and Allergies including time and route of recently administered narcotics and sedatives. MEDS/ALLERGIES REVIEWED: Yes ASA RATING ASA RATING: III AIRWAY ASSESSMENT Airway Assessment Airway patency, oral function limitations, presence of caps, crowns, dentures, partials, and ability to extend neck assessed. AIRWAY ASSESSMENT: Yes MALLAMPATI SCORE MALLAMPATI SCORE: II PRE-SEDATION ASSESSMENT PRE-SEDATION ASSESSMENT: Yes RADHA DHALIWAL MD Oct 29, 2020 10:35
[2020-10-29 10:45] VITALS: BP 148/71
[2020-10-29] MEDS ORDERED: IV 1/2 NORMAL SALINE 1,000 ML IV SCH (10:45)
[2020-10-29 11:00] VITALS: BP 131/61
[2020-10-29 11:15] VITALS: BP 136/72
[2020-10-29 11:30] VITALS: BP 138/63
--- NOTE | 2020-10-29 12:56 | NUR ---
Pt discharged to home with family. discharge instructions reviewed with patient and family. TR band dc'd. armboard reapplied. Pt home in private vehicle. PIV dc'd
--- NOTE | 2020-10-29 15:23 | CARD ---
MR#: [id number] Date of Study: 10/29/2020 Ordering Physician: RADHA PETERSON, Referring Physician: RADHA PETERSON, Tech: RT Gatito(R) APPROVED REPORT Patient StatusOUT-PATIENT Momd Teacher: RT Gatito(R) Procedure(s) performed: Aortogram with bilateral lower extremity runoff fl time: 11.8 mins dose: 89 gycm2 contrast: 68 ml moderate sedation: 80 mins INDICATION FOR PROCEDURE The indication(s) include : Peripheral artery disease with claudication. CASE TECHNIQUE After explaining the risks, benefits, and alternative options, informed consent was obtained from the patient. IV conscious sedation was used throughout procedure with appropriate monitoring and was per formed in the presence of a registered nurse who was an independent trained observer other than the nicole obrien performing the procedure. During this case, Fluoroscopy and low osmolar contrast were used f or imaging. Specimen(s) Removed: No Estimated Blood loss: 20 cc's. PROCEDURE NARRATIVE After explaining the risk, benefits and alternative options, informed consent was obtained from sri nt. Patient was brought to the cardiac [place] [facility] and her right groin was prepped and draped in the us ua fashion. 20 cc of 2% lidocaine was infiltrated into the skin and subcutaneous tissues for local anesthesia. Arterial access was obtained in the right common femoral artery. Attempts to advance a 0.035 inch J-tip wire followed by Glidewire were unsuccessful. Contrast injections performed using t he access needle showed subtotal occlusion of the distal right external iliac artery. Hemostasis was achieved using manual compression. Patient is right wrist was then prepped and draped in the usual fashion for radial arterial access after confirming a positive modified Asif's test. Arterial acces s was obtained in the right radial artery and a 6 Russian sheath was inserted. 6 Russian R2P multicurv e PVI catheter with sideholes was then advanced under fluoroscopy guidance and with the tip position in the distal descending aorta, aorto iliac angiography was performed. This was [facility]ac [facility]. Selective right lower extremity angiography was performed. Subsequently, t his was advanced into the left common femoral artery and a selective left lower extremity angiography was performed. Based on the findings stated below, we decided to intervene on the right external iliac artery. [place] heidi, several attempts to advance R2P destination sheath were unsuccessful secondary to severe radial arterial spasm. Patient was given intra-arterial vasodilators but again attempts to advance the dest ination sheath were unsuccessful. Due to the contrast load/fluoroscopy used in a patient with elevat ed creatinine of 1.6, we decided to abandon intervention with plans for intervening on the right exte rnal iliac and superficial femoral arteries in 2 to 3 weeks via left common femoral arterial access. Patient tolerated the procedure well. Hemostasis was achieved using TR band. There were no immedia te complications. FINDINGS 1. No significant stenosis involving the distal descending aorta. 2. No significant stenosis involving bilateral common iliac arteries. 3. The right external iliac artery showed 95 to 99% calcified stenosis involving the distal segment. The left external iliac artery did not show any significant stenosis. 4. The common femoral arteries bilaterally did not show any significant stenosis. 5. The right superficial femoral artery showed 60% stenosis in the proximal segment and a long 90% s tenosis in the mid to distal segment. The left superficial femoral artery showed 30% stenosis in the midsegment and 40 to 50% stenosis in the distal segment. 6. No significant stenosis involving popliteal arteries bilaterally. 7. There is two vessel runoff below the knee bilaterally involving posterior tibial and peroneal art eries. The anterior tibial arteries bilaterally showed chronic total occlusions in the proximal segm ent. Conclusion Severe right lower extremity peripheral artery disease involving the right external iliac and superfi cial femoral arteries as described above Attempts at percutaneous intervention were unsuccessful secondary to severe radial artery spasm Recommendations Plan for INSTRUMENT LENS GRINDER APPRENTICE to right external iliac and right superficial femoral arteries in 2 to 3 weeks Vascular risk factor modification including regular exercise regimen Signed by : Radha Peterson, Electronically Approved : 10/29/2020 15:23:30
== END 2020-10-29 12:58 | disposition home or self-care (01) ==
LOC: CCL 06:55
PROVIDERS: ATTEND Internal Medicine Cardiovascular Disease
DX: I70.213 Atherosclerosis of native arteries of extremities with intermittent claudication, bilateral legs (principal); I10 Essential (primary) hypertension; E11.9 Type 2 diabetes mellitus without complications; E78.00 Pure hypercholesterolemia, unspecified; M19.90 Unspecified osteoarthritis, unspecified site; I25.10 Atherosclerotic heart disease of native coronary artery without angina pectoris; E66.9 Obesity, unspecified; Z95.1 Presence of aortocoronary bypass graft; Z98.41 Cataract extraction status, right eye; Z98.42 Cataract extraction status, left eye; Z95.4 Presence of other heart-valve replacement; Z98.890 Other specified postprocedural states
CPT/HCPCS: 36245; 36415; 75625; 75716; 80048; 85027; 85610; 99152; 99153; C1769; C1894; J1644; J2250; J3010; J3490; Q9967

== ENCOUNTER → 2020-11-07 | Outpatient (CLI) | payer MEDICARE ==
[2020-10-29 11:30] VITALS: BP 138/63
[~2020-11-07] MED LIST changes: +FURO40TA4 PO; +METF500T16 PO; +POTA10TA12 PO
--- NOTE | 2020-11-07 16:34 | KCIC ---
EXAM: Renal sonogram. HISTORY: Chronic renal disease. TECHNIQUE: Sonographic imaging of the kidneys and bladder was performed. COMPARISON: None. FINDINGS: The right kidney measures 12.3 cm eynn-ic-fcgh. The left kidney measures 11.7 cm pole-to-po le. No solid or cystic renal lesion is seen. There is no hydronephrosis. The prevoid bladder volume i s 77 cc. There is no post void bladder residual. The left ureteral jet is not seen during the exam. T he right ureteral jet is visualized. IMPRESSION: 1. Sonographically unremarkable kidneys. 2. No post void bladder residual. Electronically signed by: Heather Coyne MD (11/07/2020 4:32 PM) [id number]
== END ==
LOC: KCIC US 14:30
PROVIDERS: ATTEND Internal Medicine Nephrology
DX: N18.31 Chronic kidney disease, stage 3a (principal)
CPT/HCPCS: 76770

== ENCOUNTER → 2020-11-20 | Outpatient (CLI) | payer MEDICARE ==
[2020-11-20] VITALS (16 sets, daily range): BP systolic 132–181; BP diastolic 53–88
[~2020-11-20] VITALS: Ht 152.4 cm; Wt 70.0 kg
[~2020-11-20] MED LIST changes: +ACETAMINOPHEN 325 MG TABLET. PO PRN; +CONTRAST GIVEN. MC PRN; +HEPARIN for IV BOLUS 10,000 UNIT/10 ML VIAL. IV ONE; +HEPARIN for IV BOLUS 10,000 UNIT/10 ML VIAL. ONE; +IODIXANOL 320 MG/ML 100 ML VIAL. IART ONE; +IODIXANOL 320 MG/ML 100 ML VIAL. ONE; +IV 1/2 NORMAL SALINE 1,000 ML IV SCH; +IV NORMAL SALINE 1000ML BAG 1,000 ML IV SCH; +LIDOCAINE 1% Multi-Dose 20 ML VIAL. INJ ONE; +LIDOCAINE 1% Multi-Dose 20 ML VIAL. ONE; +MIDAZOLAM HCL/PF 2 MG/2 ML VIAL. IV ONE; +MIDAZOLAM HCL/PF 2 MG/2 ML VIAL. ONE; +fentaNYL PF VIAL 100 MCG/2 ML VIAL IV ONE; +fentaNYL PF VIAL 100 MCG/2 ML VIAL ONE
[2020-11-20 07:53] LABS: CALCIUM 8.9 mg/dL (8.5-10.1); CREATININE 2.1 mg/dL (0.6-1.0); GFR 27.3; POTASSIUM 4.2 mmol/L (3.5-5.1)
--- NOTE | 2020-11-20 10:25 | PDOC ---
MODERATE SEDATION ASSESSMENT RISKS/ALTERNATIVES Risks/Alternatives Risks and alternatives of this type of sedation and procedure discussed with: RISK/ALTERNATIVES: Patient H & P ON CHART H & P H & P on chart and reviewed for co-morbid conditions and appropriate labs. H&P ON CHART: Yes STATUS PREG STATUS ASSESSED: N/A MEDS/ALLERGIES REVIEWED Meds/Allergies Reviewed Medications and Allergies including time and route of recently administered narcotics and sedatives. MEDS/ALLERGIES REVIEWED: Yes ASA RATING ASA RATING: II AIRWAY ASSESSMENT Airway Assessment Airway patency, oral function limitations, presence of caps, crowns, dentures, partials, and ability to extend neck assessed. AIRWAY ASSESSMENT: Yes MALLAMPATI SCORE MALLAMPATI SCORE: II PRE-SEDATION ASSESSMENT PRE-SEDATION ASSESSMENT: Yes RADHA DHALIWAL MD Nov 20, 2020 10:25
--- NOTE | 2020-11-20 10:41 | CARD ---
MR#: [id number] Date of Study: 11/20/2020 Ordering Physician: RADHA PETERSON, Referring Physician: RADHA PETERSON, Tech: RT Gatito(R) APPROVED REPORT Patient StatusOUT-PATIENT Hide Inspector: RT Gatito(R) Procedure(s) performed: Successful balloon REGISTERED NURSE FIRST ASSISTANT to right external iliac artery and right superficial f emoral artery Sedation Time: 73 Minutes Dose: 49 Gycm2 Fluoro Time: 20.0 Minutes Contrast: 43 mL Visipaque INDICATION FOR PROCEDURE The indication(s) include : 84-year-old female with peripheral artery disease and claudication recent ly underwent aortogram with runoff via right transradial approach and was found to have significant s tenosis involving the right external iliac and superficial femoral arteries. Intervention could not b e performed at that time due to severe radial artery vasospasm. She presented today for REGISTERED NURSE FIRST ASSISTANT to right external iliac artery and in-stent restenosis involving right superficial femoral artery via left com mon femoral approach.. CASE TECHNIQUE After explaining the risks, benefits, and alternative options, informed consent was obtained from the patient. IV conscious sedation was used throughout procedure with appropriate monitoring and was per formed in the presence of a registered nurse who was an independent trained observer other than the nicole obrien performing the procedure. During this case, Fluoroscopy and low osmolar contrast were used f or imaging. Specimen(s) Removed: No Estimated Blood loss: 15 cc's. PROCEDURE NARRATIVE 20 cc of 2% lidocaine was infiltrated into the skin and subcutaneous tissues of left groin for local anesthesia. Arterial access was obtained in the left common femoral artery and 6 Br[place]ian 45 cm french ation sheath was inserted. This was advanced over the aortic dinah with the help of a 5 [place] Minglebox sover catheter and the tip was positioned in the right common iliac artery. Selective right lower ex tremity angiography confirmed the previously described 95% calcified stenosis involving the very dist al segment of the right external iliac artery and a long 90% in-stent restenosis involving the right superficial femoral artery with vessel runoff below the knee two. These lesions were crossed with a 0.035 inch Glidewire with backup support from 4 [place] angled glide catheter. The wire was then exchanged to a 0.018 inch command LT guidewire. The right external eliceo ac artery stenosis was dilated sequentially with 5.0 x 40 mm followed by 6.0 x 40 mm Lynn Ute ba lloon. The right superficial femoral artery stenosis within the stent was dilated with a 5.5 x 100 m m Lynn Ute balloon. Follow-up angiography showed resolution of the lesions with good distal amarilys w. Patient tolerated the procedure well. Hemostasis was achieved using Angio-Seal. There were no i mmediate complications. Conclusion Successful balloon REGISTERED NURSE FIRST ASSISTANT to right external iliac artery and in-stent restenosis involving the right sup erficial femoral artery. Recommendations Vascular risk factor modification Signed by : Radha Peterson, Electronically Approved : 11/20/2020 10:40:56
--- NOTE | 2020-11-20 14:50 | NUR ---
Discharge Note: RAMON HOLBROOK Discharge instructions and discharge home medications reviewed with Patient and daughter and a copy given. All questions have been answered and understanding verbalized. The following instructions and handouts were given: Groin site care and moderate sedation. Discontinued lines and drains: IV dc'd with no complications, tip intact, see interventions. Patient discharged to home with daughter via personal vehicle.
== END | disposition home or self-care (01) ==
LOC: CCL 06:49
PROVIDERS: ATTEND Internal Medicine Cardiovascular Disease
DX: I73.9 Peripheral vascular disease, unspecified (principal); I25.10 Atherosclerotic heart disease of native coronary artery without angina pectoris; I10 Essential (primary) hypertension; E78.00 Pure hypercholesterolemia, unspecified; E11.9 Type 2 diabetes mellitus without complications; E66.9 Obesity, unspecified; M19.90 Unspecified osteoarthritis, unspecified site; Z79.82 Long term (current) use of aspirin; Z79.84 Long term (current) use of oral hypoglycemic drugs; Z79.899 Other long term (current) drug therapy; Z98.890 Other specified postprocedural states
CPT/HCPCS: 36415; 37220; 37224; 75710; 80048; 99152; 99153; C1725; C1760; C1769; C1894; J1644; J2250; J3010; J3490; J7030; Q9967; G0269

== ENCOUNTER → 2021-02-26 | Outpatient (CLI) | payer MEDICARE ==
[2020-11-20 13:35] VITALS: BP 172/66
[~2021-02-26] MED LIST changes: -ACETAMINOPHEN 325 MG TABLET. PO PRN; -CONTRAST GIVEN. MC PRN; -HEPARIN for IV BOLUS 10,000 UNIT/10 ML VIAL. IV ONE; -HEPARIN for IV BOLUS 10,000 UNIT/10 ML VIAL. ONE; -IODIXANOL 320 MG/ML 100 ML VIAL. IART ONE; -IODIXANOL 320 MG/ML 100 ML VIAL. ONE; -IV 1/2 NORMAL SALINE 1,000 ML IV SCH; -IV NORMAL SALINE 1000ML BAG 1,000 ML IV SCH; -LIDOCAINE 1% Multi-Dose 20 ML VIAL. INJ ONE; -LIDOCAINE 1% Multi-Dose 20 ML VIAL. ONE; -MIDAZOLAM HCL/PF 2 MG/2 ML VIAL. IV ONE; -MIDAZOLAM HCL/PF 2 MG/2 ML VIAL. ONE; -fentaNYL PF VIAL 100 MCG/2 ML VIAL IV ONE; -fentaNYL PF VIAL 100 MCG/2 ML VIAL ONE
--- NOTE | 2021-02-26 07:17 | RAD ---
EXAM: Right lower extremity venous Doppler. HISTORY: Right lower extremity pain/swelling. COMPARISON: None. FINDINGS: Grayscale and Doppler analysis of the right lower extremity deep venous system was performe d with graded compression and augmentation. The common femoral, greater saphenous, superficial femora l, popliteal and calf veins were assessed. There is no evidence of deep venous thrombosis. IMPRESSION: 1. No evidence of deep venous thrombosis. Electronically signed by: Mauricio Urrutia MD (02/26/2021 7:14 AM) [facility]
== END ==
LOC: US 06:41
PROVIDERS: ATTEND Nurse Practitioner
DX: M79.661 Pain in right lower leg (principal)
CPT/HCPCS: 93971

== ENCOUNTER → 2021-06-27 | Outpatient (CLI) | payer MEDICARE ==
[2020-11-20 13:35] VITALS: BP 172/66
--- NOTE | 2021-06-27 17:52 | CARD ---
MR#: [id number] Date of Study: 06/27/2021 Ordering Physician: RADHA DHALIWAL, Referring Physician: RADHA DHALIWAL, Tech: FABY RANGEL RDCS,T APPROVED REPORT EXAM: Two-dimensional and M-mode echocardiogram with Doppler and color Doppler. Other Information Quality : GoodHR: 64bpm Rhythm : BBB INDICATION Cardiac Disease: CAD 2D DIMENSIONS RVDd2.2 (2.9-3.5cm)Left Atrium(2D)4.1 (1.6-4.0cm) IVSd1.2 (0.7-1.1cm)Aortic Root(2D)2.3 (2.0-3.7cm) LVDd3.5 (3.9-5.9cm)LVOT Diameter1.8 (1.8-2.4cm) PWd1.3 (0.7-1.1cm)LVDs2.4 (2.5-4.0cm) FS (%) 30.9 %SV31.2 ml M-Mode DIMENSIONS RVDd1.17 (2.1-3.2cm) Aortic Valve AoV Peak Richard.195.6cm/sAoV VTI48.1cm AO Peak GR.15.3mmHgLVOT Peak Richard.120.1cm/s AO Mean GR.9mmHgAVA (VMAX)1.57cm2 Mitral Valve MV E Ukrrlpoh86.9cm/sMV E Peak Gr.9mmHg MV DECEL [id number] A Iloaplyz417.2cm/s MV E Mean Gr.3mmHgE/A Ratio0.6 Pulmonary Valve PV Peak [place]834.4cm/s Tricuspid Valve TR P. Vetvknvf586vr/sRAP [id number] TR Peak Gr.72mpViBGQE35zlTv Pulmonary Vein S1 Mnsmkifw45.5cm/sD2 Czxpxwyi02.1cm/s PVa [id number] LEFT VENTRICLE The left ventricle is normal size. There is mild concentric left ventricular hypertrophy. The left ve ntricular systolic function is normal and the ejection fraction is within normal range. LV Ejection F raction is 55-60%. No regional wall motion abnormalities noted. The left ventricular diastolic functi on is normal. No left ventricle thrombus noted on this study. There is no ventricular septal defect v isualized. There is no left ventricular aneurysm. There is no mass noted in the left ventricle. RIGHT VENTRICLE The right ventricle is normal size. There is normal right ventricular wall thickness. The right ventr icular systolic function is normal. ATRIA The left atrium is mildly dilated. The right atrium is mildly dilated. The interatrial septum is inta ct with no evidence for an atrial septal defect or patent foramen ovale as noted on 2-D or Doppler im aging. AORTIC VALVE The aortic valve is mildly sclerotic. Doppler and Color Flow revealed mild aortic regurgitation. Ther e is mild valvular aortic stenosis. There is no aortic valvular vegetation. MITRAL VALVE Mitral annular calcification is mild. There is no evidence of mitral valve prolapse. There is no mitr al valve stenosis. Doppler and Color Flow revealed trace mitral regurgitation. TRICUSPID VALVE The tricuspid valve is normal in structure and function. Doppler and Color Flow revealed trace tricus pid regurgitation. The PA pressure was estimated at 24 mmHg. There is no tricuspid valve prolapse or vegetation. There is no tricuspid valve stenosis. PULMONIC VALVE The pulmonary valve is normal in structure and function. There is no pulmonic valvular regurgitation. There is no pulmonic valvular stenosis. GREAT VESSELS The aortic root is normal in size. The ascending aorta is normal in size. The pulmonary artery is nor mal. The IVC is normal in size and collapses >50% with inspiration. PERICARDIAL EFFUSION There is no pleural effusion. The pericardium appears normal. Critical Notification Critical Value: No <Conclusion> The left ventricle is normal size. The left ventricular systolic function is normal and the ejection fraction is within normal range. LV Ejection Fraction is 55-60%. There is mild concentric left ventricular hypertrophy. The aortic valve is mildly sclerotic. Doppler and Color Flow revealed mild aortic regurgitation. There is mild valvular aortic stenosis. Doppler and Color Flow revealed trace mitral regurgitation. Doppler and Color Flow revealed trace tricuspid regurgitation. The PA pressure was estimated at 24 mmHg. Signed by : Bao Castro MD Electronically Approved : 06/27/2021 17:52:07
== END ==
LOC: ECHO 07:38
PROVIDERS: ATTEND Internal Medicine Cardiovascular Disease
DX: I08.0 Rheumatic disorders of both mitral and aortic valves (principal); I25.10 Atherosclerotic heart disease of native coronary artery without angina pectoris
CPT/HCPCS: 93306; C8929